=== PATIENT | female | born 1970 | race American Indian/Alaskan Native ===

== ENCOUNTER 2019-09-02 09:51 | Emergency (ER) | payer OTHER ==
[2019-09-02 09:59] VITALS: BMI 20.9
[2019-09-02] MEDS ORDERED: ONDANSETRON 4 MG/2 ML VIAL IVPUSH PRN (11:40)
[2019-09-02] MEDS ORDERED: MAG HYDROX/AL HYDROX/SIMETH 30 ML UNIT-DOSE CUP PO ONE (11:40)
[2019-09-02] MEDS ORDERED: FAMOTIDINE 20 MG/50 ML IVPB 20 MG/50 ML MG IVPB ONE ×2 (11:40→14:24)
--- NOTE | 2019-09-02 11:41 | PDOC ---
History of Present Illness - General Chief Complaint: Pain Stated Complaint: ABD PAIN Time Seen by Provider: 09/02/19 10:21 - History of Present Illness Initial Comments: 09/02/19 12:41 48 yo F PMH cholecystectomy, tubal ligation, recent appendectomy in May 2019, reported 5 ulcers found after a scope on pantoprazole, presenting with abdominal pain. States that since the appendectomy, she has had intermittent cramping periumbilical abdominal pain that feels "like giving ". Over the last 2 weeks, these have become more intense and more frequent. Currently, she says that it is always present at a low-grade, at least 3/10, but can spike up to 10/10. Here today after 10/10 pain yesterday. Associated with nausea without vomiting, worse after food. Patient reports that since the appendectomy, she has had 6-7 otherwise normal bowel movements per day. She has also had to urinate every 30 minutes or so due to sensation of fullness, after which she feels like she has not completely voided. Endorses occasional SZYMANSKI, SOB with exertion that she believes is due to being busy , abdominal pain, dysuria, frequent urination, nausea without vomiting. Denies CP, SOB at rest, fevers/chills, constipation/diarrhea, bloody stools. Past History - Past Medical History Allergies/Adverse Reactions: Allergies Allergy/AdvReac Type Severity Reaction Status Date / Time amoxicillin Allergy Verified 09/02/19 10:00 diphenhydramine Allergy Verified 09/02/19 10:00 [From Benadryl] pollen extracts Allergy Verified 09/02/19 10:00 shellfish derived Allergy Verified 09/02/19 10:00 Home Medications: Ambulatory Orders Pantoprazole Sodium 40 mg PO HS 09/02/19 Zolpidem Tartrate [Ambien] 10 mg PO HS PRN 09/02/19 COPD: No - Surgical History Appendectomy: Yes (06/07/19) - Psycho Social/Smoking Cessation Hx Smoking History: Never smoked Review of Systems - Review of Systems Comments:: 09/02/19 14:38 GENERAL/CONSTITUTIONAL: No fever or chills. No weakness. HEAD, EYES, EARS, NOSE AND THROAT: No change in vision. No ear pain or discharge. No sore throat. CARDIOVASCULAR: No chest pain. Shortness of breath with exertion. RESPIRATORY: No cough, wheezing, or hemoptysis. GASTROINTESTINAL: Nausea without vomiting. No diarrhea or constipation, however , has 6-7 bowel movements per day. GENITOURINARY: No dysuria, frequency, or change in urination. MUSCULOSKELETAL: No joint or muscle swelling or pain. No neck or back pain. SKIN: No rash NEUROLOGIC: Intermittent headaches. No vertigo, loss of consciousness, or change in strength/sensation. ENDOCRINE: No increased thirst. No abnormal weight change. HEMATOLOGIC/LYMPHATIC: No anemia, easy bleeding, or history of blood clots. ALLERGIC/IMMUNOLOGIC: No hives or skin allergy *Physical Exam - Vital Signs Last Vital Signs Temp Pulse Resp BP Pulse Ox 98.1 F 80 18 117/66 99 09/02/19 09:56 09/02/19 09:56 09/02/19 09:56 09/02/19 09:56 09/02/19 09:56 - Physical Exam 09/02/19 14:39 Gen: well-developed, well-nourished, NAD Neuro: AAOX4, CN II-XII intact, FTN intact, EOMI, PERRLA, 5/5 strength, SILT HEENT: atraumatic, normocephalic, dry mucous membranes Neck: trachea midline, supple CV: regular rate, regular rhythm, no murmurs, rubs, or gallops Pulm: CTA b/l, no wheezing Abd: soft, non-distended, suprapubic and RLQ ttp : normal uterus, closed os, R adnexal tenderness, no discharge MSK: full ROM, intact pulses Extr: no edema, no deformities Skin: warm, dry ED Treatment Course - LABORATORY CBC & Chemistry Diagram: 09/02/19 12:00 09/02/19 12:00 Medical Decision Making - Medical Decision Making 09/02/19 13:21 Concern for possible abdominal pathology v UTI v ovarian torsion. - CBC, CMP - EKG - CT abd/pelvis w/ contrast 09/02/19 16:33 Labs wnl, CT scan unremarkable. Pelvic exam: normal uterus, closed os, R adnexal tenderness, no discharge. Will get TVUS for r/o torsion. Discharge - Discharge Information Problems reviewed: Yes - Follow up/Referral - Patient Discharge Instructions - Post Discharge Activity
[2019-09-02] MEDS ORDERED: MAG HYDROX/AL HYDROX/SIMETH 30 ML UNIT-DOSE CUP ONE (12:10)
[2019-09-02] MEDS ORDERED: SODIUM CHLORIDE 1,000 ML IV STA (12:21)
[2019-09-02] MEDS ORDERED: ACETAMINOPHEN 1000 MG/100 ML VIAL (NON FORMULARY) IVPB ONE (12:21)
[2019-09-02 12:23] LABS: EPI CELLS 0.5 /HPF (0-5/HPF); HYALINE CASTS 0 /lpf (0-8); URINE APPEARANCE CLEAR; URINE BACTERIA 0.3 /hpf (NEGATIVE); URINE BILIRUBIN NEGATIVE (NEGATIVE); URINE COLOR YELLOW; URINE GLUCOSE (UA) NEGATIVE (NEGATIVE); URINE KETONE NEGATIVE (NEGATIVE); URINE LEUK ESTERASE TRACE (NEGATIVE); URINE NITRITE NEGATIVE (NEGATIVE); URINE PROTEIN NEGATIVE (NEGATIVE); URINE RBC 3 /hpf (0-4); URINE UROBILINOGEN 0.2 mg/dL (0.2-1.0); URINE WBC 1 /hpf (0-5)
[2019-09-02 12:36] LABS: BASO % 0.2 % (0-2.0); EOS % 3.9 % (0-4.5); HEMATOCRIT 39.5 % (32.4-45.2); HEMOGLOBIN 13.3 GM/dL (10.7-15.3); LYMPH % 23.2 % (8-40); MCH 28.8 pg (25.7-33.7); MCHC 33.7 g/dl (32.0-36.0); MEAN CELL VOLUME 85.3 fl (80-96); MEAN PLT VOLUME 8.9 fl (7.5-11.1); MONO % 5.4 % (3.8-10.2); NEUT % 67.3 % (42.8-82.8); PLATELET COUNT 281 K/MM3 (134-434); RBC 4.63 M/mm3 (3.60-5.2); RDW 13.4 % (11.6-15.6); WHITE BLOOD COUNT 5.2 K/mm3 (4.0-10.0)
[2019-09-02 12:47] LABS: ALBUMIN 3.7 g/dl (3.4-5.0); ALK PHOS 96 U/L (45-117); ANION GAP 7 MMOL/L (8-16); BILIRUBIN,TOTAL 0.7 mg/dL (0.2-1); CALCIUM 8.9 mg/dL (8.5-10.1); CHLORIDE 108 mmol/L (98-107); CO2 26 mmol/L (21-32); CREATININE 0.6 mg/dL (0.55-1.3); GLUCOSE,RANDOM 88 mg/dL (74-106); LIPASE 88 U/L (73-393); SGOT/AST 77 U/L (15-37); SGPT/ALT 146 U/L (13-61); SODIUM 141 mmol/L (136-145); TOT PROT 7.5 g/dl (6.4-8.2)
[2019-09-02] MEDS ORDERED: ACETAMINOPHEN INJECTION 100 ML IVPB ONE (13:05)
--- NOTE | 2019-09-02 13:38 | PDOC ---
Documentation entered by Adrián Quesada SCRIBE, acting as scribe for Bill Monterroso MD. Bill Monterroso MD: This documentation has been prepared by the Sangita walter Nirvannie, SCRIBE, under my direction and personally reviewed by me in its entirety. I confirm that the documentation accurately reflects all work, treatment, procedures, and medical decision making performed by me. Attending Attestation - Resident Resident Name: Zack Stark - ED Attending Attestation I have performed the following: I have examined & evaluated the patient, The case was reviewed & discussed with the resident, I agree w/resident's findings & plan, Exceptions are as noted - HPI HPI: 09/02/19 13:38 48 F with h/o PUD, recent appendectomy 05/2019, presenting to ED with lower abdominal pain. Pt states that she has had persistent pain since her appendectomy 3 months ago. She states it is cramp-like and intermittent, feels like giving . Pt notes that the pain has progressively worsened, and last night she had a particularly bad episode. Pt endorses nausea without vomiting. Denies F/C. Denies diarrhea/constipation. - Physicial Exam PE: 09/02/19 13:39 "GENERAL: Awake, alert, and fully oriented, in no acute distress. HEAD: No signs of trauma EYES: PERRLA, EOMI, sclera anicteric, conjunctiva clear ENT: Auricles normal inspection, hearing grossly normal, nares patent, oropharynx clear without exudates. Moist mucosa NECK: Nontender, no stepoffs, Normal ROM, supple, no lymphadenopathy, JVD, or masses LUNGS: Breath sounds equal, clear to auscultation bilaterally. No wheezes, and no crackles HEART: Regular rate and rhythm, normal S1 and S2, no murmurs, rubs or gallops ABDOMEN: + suprapubic and RLQ TTP, normoactive bowel sounds. No guarding, no rebound. No masses EXTREMITIES: Normal range of motion, no edema. No clubbing or cyanosis. No cords, erythema, or tenderness NEUROLOGICAL: Cranial nerves II through XII intact. 5/5 strength and sensation in all extremities, Normal speech, normal gait, normal cerebellar function SKIN: Warm, Dry, normal turgor, no rashes or lesions noted. - Medical Decision Making 09/02/19 13:39 48 F with lower abdominal pain. - Labs, lipase, UA, UPT - CTAP - IVF, GI cocktail Labs wnl CT normal Pelvic exam with R adnexal tenderness, no abnormal findings TVUS ordered Pt signed out to oncoming attending Dr. Vigil at 5pm, pending TVUS and re- evaluation
--- NOTE | 2019-09-02 18:56 | PDOC ---
*Physical Exam - Vital Signs Last Vital Signs Temp Pulse Resp BP Pulse Ox 98.1 F 80 18 117/66 99 09/02/19 09:56 09/02/19 09:56 09/02/19 09:56 09/02/19 09:56 09/02/19 09:56 ED Treatment Course - LABORATORY CBC & Chemistry Diagram: 09/02/19 12:00 09/02/19 12:00 - ADDITIONAL ORDERS Additional order review: Laboratory Results 09/02/19 09/02/19 09/02/19 12:00 12:00 12:00 Sodium 141 Potassium 4.0 Chloride 108 H Carbon Dioxide 26 Anion Gap 7 L BUN 12.0 Creatinine 0.6 Est GFR (CKD-EPI)AfAm 124.05 Est GFR (CKD-EPI)NonAf 107.03 Random Glucose 88 Calcium 8.9 Total Bilirubin 0.7 AST 77 H ALT 146 H Alkaline Phosphatase 96 Creatine Kinase 57 Troponin I < 0.02 Total Protein 7.5 Albumin 3.7 Lipase 88 Urine Color Yellow Urine Appearance Clear Urine pH 7.0 Ur Specific [place] 1.015 Urine Protein Negative Urine Glucose (UA) Negative Urine Ketones Negative Urine Blood Negative Urine Nitrite Negative Urine Bilirubin Negative Urine Urobilinogen 0.2 Ur Leukocyte Esterase Trace Urine WBC (Auto) 1 Urine RBC (Auto) 3 Urine Casts (Auto) 0 U Epithel Cells (Auto) 0.5 Urine Bacteria (Auto) 0.3 Urine HCG, Qual Negative 09/02/19 12:00 RBC 4.63 MCV 85.3 MCHC 33.7 RDW 13.4 MPV 8.9 Neutrophils % 67.3 Lymphocytes % 23.2 Monocytes % 5.4 Eosinophils % 3.9 Basophils % 0.2 - Medications Given in the ED: ED Medications Discontinued Medications Generic Name Dose Route Start Last Admin Trade Name Freq PRN Reason Stop Dose Admin Acetaminophen 1,000 mg 09/02/19 12:21 09/02/19 12:10 Ofirmev Injection - IVPB 09/02/19 12:22 1,000 mg ONCE ONE Administration Al Hydroxide/Mg Hydroxide 30 ml 09/02/19 11:40 09/02/19 12:13 Mylanta Oral Suspension - PO 09/02/19 11:41 30 ml ONCE ONE Administration Famotidine/Sodium Chloride 20 mg in 50 mls @ 100 mls/hr 09/02/19 11:40 14:31 Pepcid 20 Mg Premixed Ivpb - IVPB 09/02/19 12:09 100 mls/hr ONCE ONE Administration Sodium Chloride 1,000 mls @ 1,000 mls/hr 09/02/19 12:21 09/02/19 12:00 Normal Saline - IV 09/02/19 13:20 1,000 mls/hr ASDIR STA Administration Medical Decision Making - Medical Decision Making 09/02/19 18:55 Pt received on sign out from Dr. Stark. Patient presenting with periumbilical abd pain. Symptoms improved with pepcid maalox. Pending TVUS, will dispo per result. 09/02/19 20:03 TVUS shows no ovarian pathology or torsion. Plan to d/c home with PCP, urology, and obgyn f/u. All questions answered. Patient expressed agreement and understanding. Return precautions given. Discharge - Discharge Information Problems reviewed: Yes Clinical Impression/Diagnosis: Abdominal pain Qualifiers: Abdominal location: periumbilical Qualified Code(s): R10.33 - Periumbilical pain Condition: Stable Disposition: HOME - Admission No - Follow up/Referral Referrals: Eric Hernandez MD [Staff Physician] - True Miranda MD [Staff Physician] - Matilde Hoang DO [Staff Physician] - - Patient Discharge Instructions Patient Printed Discharge Instructions: DI for Abdominal Pain-Adult Additional Instructions: Please make a follow up appointment with a primary care doctor, an OBGYN, and a urologist to follow up your visit. Referral provided here. If you experience any new, worsening, or concerning symptoms, please return to the emergency department. - Post Discharge Activity
[2019-09-02 20:51] VITALS: BP 116/77; PULSE 82; TEMP 98
--- NOTE | 2019-09-03 14:50 | EKG ---
Test Reason : Blood Pressure : / mmHG Vent. Rate : 066 BPM Atrial Rate : 066 BPM P-R Int : 162 ms QRS Dur : 082 ms QT Int : 398 ms P-R-T Axes : 068 070 067 degrees QTc Int : 417 ms NORMAL SINUS RHYTHM NORMAL ECG NO PREVIOUS ECGS AVAILABLE Confirmed by STACI LLAMAS MD ([id number]) on 09/03/2019 2:50:43 PM Referred By: Confirmed By:STACI LLAMAS MD
== END 2019-09-02 19:59 | disposition home or self-care (01) ==
LOC: JER 09:51
PROC: 3E033NZ Introduction of Analgesics, Hypnotics, Sedatives into Peripheral Vein, Percutaneous Approach (ICD-10-PCS; principal; 2019-09-02)
PROC: 3E033GC Introduction of Other Therapeutic Substance into Peripheral Vein, Percutaneous Approach (ICD-10-PCS; 2019-09-02)
DX: R10.33 Periumbilical pain (principal); Z88.8 Allergy status to other drugs, medicaments and biological substances; J30.1 Allergic rhinitis due to pollen; Z91.013 Allergy to seafood
CPT/HCPCS: 36415; 74177-TC; 76830-TC; 80053; 81003; 82550; 83690; 84484; 84703; 85025; 87086; 87491; 87591; 93005; 93010; 99283-25; J0131; J7030; Q9967